=== PATIENT | female | born 1970 | race Caucasian/White ===

== ENCOUNTER 2020-10-18 15:04 | Emergency (ER) | payer OTHER ==
[2020-10-18 15:58] LABS: BASOPHIL 0.3 % (0-2); EOSINOPHIL 1.7 % (0-5); HGB 13.2 g/dl (12.5-16.0); LYMPHOCYTE 41.4 % (15-48); MCH 28.8 pg (25.0-31.0); MCV 87.3 fL (78.0-100.0); MONOCYTE 5.9 % (0-12); MPV 9.8 fL (6.0-9.5); NEUTROPHIL 50.4 % (41-80); NRBC 0; PLT 299 K/uL (150-400); RBC 4.58 M/uL (4.20-5.40); RDW 12.6 % (11.5-14.0); WBC 8.8 K/uL (4.0-10.5)
[2020-10-18 16:13] LABS: ALBUMIN 3.7 g/dL (3.4-5.0); BILIRUBIN - TOTAL 0.3 mg/dL (0.2-1.0); BUN/CREAT RATIO (CALC) 24.6 RATIO; CREATININE 0.61 mg/dL (0.51-0.95); GLOBULIN (CALCULATION) 4.2 g/dL; MAGNESIUM 2.1 mg/dL (1.8-2.4); POTASSIUM 3.7 mmol/L (3.5-5.1); TOTAL PROTEIN 7.9 g/dL (6.4-8.2)
== END 2020-10-18 17:58 | disposition other institution (70) ==
LOC: FER 15:04
PROVIDERS: Emergency Medicine
DX: I63.9 Cerebral infarction, unspecified (principal); R20.2 Paresthesia of skin; I10 Essential (primary) hypertension; R29.701 NIHSS score 1; E11.9 Type 2 diabetes mellitus without complications; Z88.0 Allergy status to penicillin; Z20.822 Contact with and (suspected) exposure to COVID-19
CPT/HCPCS: 36415; 70450; 71045; 80053; 83735; 85025; 93005; U0002